=== PATIENT | male | born 1935 | race Caucasian/White ===

== ENCOUNTER 2021-08-11 11:48 | Emergency (ER) | payer MEDICARE, SELFPAY ==
[2021-08-11 11:49] VITALS: BP 126/106; PULSE 69; RESP 16; TEMP 36.2; O2SAT 97; BMI 27.1
[2021-08-11] MEDS: Lidocaine Jelly 2% 20 ML Syringe (URO-JET) 1 APPLIC TOPICAL (11:59)
[2021-08-11] MEDS: Morphine 4 MG/ML Syringe IV (12:00)
[2021-08-11] MEDS: Ondansetron 4 MG/2 ML Vial IV (12:00)
--- NOTE | 2021-08-11 12:27 | PCM.OPRPT ---
Report of Operation Pre-Operative Diagnosis: Severe urethral stricture Post-Operative Diagnosis: Same Surgery/Procedure Performed:: Dilation of urethral stricture and placement of Blake catheter over wire complicated Blake placement Description of Surgical Findings:: Indication this is a 86-year-old male history of prostate cancer treated with radiation the past and he was patient I inherited from another urologist he has had a catheter for some time we talked about maybe try to go without the catheter he agreed to do a trial without the catheter the catheter was removed 2 days ago and he has been able to urinate but then has not been able to urinate the past day and the last night he tried with a catheter any but barely get a small catheter in his bladder comes in the office he wants a catheter put back in but in the office I could not get the catheter back and had developed so much scar tissue so fast like cement. So he was taken to the emergency room in the emergency room I did a procedure at the bedside numbed up the urethra but a Glidewire through the stricture and then dilated the stricture and put a 16 Armenian catheter over the Glidewire. Flush the bladder light jacobson colored urine he will go home with a catheter and come back in 6 weeks to have the catheter change in the office we will continue with chronic Blake catheter management. Surgeon: lucy Type of Anesthesia: Local Drains: 16 fr blake Admit VTE Documentation VTE Present on Admission: No VTE Mechan Device Prophylaxis: SCD's VTE Pharm Prophylaxis ordered?: No
--- NOTE | 2021-08-11 12:48 | ED.RN ---
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 [phone]
[2021-08-11 13:13] VITALS: PULSE 75
--- NOTE | 2021-08-31 07:37 | PCM.CONS.U ---
HPI Consult Data Date of Consult: 08/31/21 HPI Narrative HPI Narrative: RONIT MCGUIRE, is a 86 M who presents with severe urethra stricutres, plan to place a blake may need to do dilation of strictures. PFSH Allergy/AdvReac Type Severity Reaction Status Date / Time No Known Allergies Allergy Verified 08/11/21 11:51 Social History Smoking Status: Never smoker
== END 2021-08-11 13:18 | disposition home or self-care (01) ==
PROVIDERS: Emergency Provider Urology; PCP Orthopaedic Surgery; Visit Provider Urology
DX: N35.919 Unspecified urethral stricture, male, unspecified site (principal); Z85.46 Personal history of malignant neoplasm of prostate
CPT/HCPCS: 51702; 96374; 96375; 99282; J7030; A4216; J2405